=== PATIENT | female | born 1985 | race Caucasian/White ===

== ENCOUNTER → 2023-05-07 08:00 | Outpatient (BNV) | payer OTHER, SELFPAY | PROVIDERS: Visit Provider Psychiatry & Neurology Psychiatry | DX: F31.81 Bipolar II disorder (principal); F10.20 Alcohol dependence, uncomplicated; F43.10 Post-traumatic stress disorder, unspecified; F41.3 Other mixed anxiety disorders; F50.89 Other specified eating disorder; Z86.59 Personal history of other mental and behavioral disorders | CPT/HCPCS: 90792; 99213 ==

== ENCOUNTER 2023-05-08 10:30 | Outpatient (REF) | payer OTHER, SELFPAY ==
[2023-05-08 10:54] LABS: MANUAL DIFF FLAG NO
[2023-05-08 11:07] LABS: Basophils Absolute Auto 0.1 X10*3/uL (0.0-0.2); Basophils Percent Auto 0.9 % (0-2); Eosinophils Percent Auto 0.6 % (0-4); Hematocrit 40.5 % (37.0-47.0); Hemoglobin 13.5 g/dl (12.0-16.0); Imm Gran Abs Auto 0.03 X10*3/uL (0.00-0.03); Imm Gran Pct Auto 0.4 % (0.0-0.4); Lymphocytes Absolute Auto 0.9 X10*3/uL (1.2-4.9); Lymphocytes Percent Auto 13.3 % (20-40); Mean Corpuscular HGB Conc 33.3 g/dl (31.0-35.0); Mean Corpuscular Hemoglobin 31.7 pg (27.0-33.0); Mean Corpuscular Volume 95.1 fL (80.0-98.0); Mean Platelet Volume 9.1 fL (9.4-12.3); Monocytes Absolute Auto 0.6 X10*3/uL (0.1-1.2); Monocytes Percent Auto 7.8 % (2-11); Neutrophils Absolute Auto 5.4 x10*3/uL (2.0-8.3); Platelet Count 374 X10*3/uL (160-400); Red Blood Count 4.26 X10*6/uL (4.20-5.50); Red Cell Distribution Width 13.2 % (11.0-16.0); White Blood Count 7.1 X10*3/uL (4.8-10.8)
[2023-05-08 11:15] LABS: Estimated Average Glucose 91 mg/dL; Hemoglobin A1c % 4.8 % (<6.0)
[2023-05-08 11:51] LABS: Alanine Aminotransferase 54 U/L (0-31); Albumin Level 4.5 g/dL (3.5-5.0); Alkaline Phosphatase 76 U/L (39-117); Anion Gap 12 (12-20); Aspartate Amino Transferase 45 U/L (5-31); Bilirubin Total 0.8 mg/dL (0.0-1.0); Blood Urea Nitrogen 11 mg/dL (9-16); Calcium 9.2 mg/dL (8.4-10.2); Carbon Dioxide 25 mmol/L (22-29); Chloride 102 mmol/L (96-108); Estimated Glomerular Filt Rate > 60; Glucose Fasting 113 mg/dL (60-99); Potassium 3.7 mmol/L (3.3-5.1); Sodium 135 mmol/L (135-145); Total Protein 7.6 g/dL (6.5-8.0)
[2023-05-08 12:10] LABS: Vitamin B12 325 pg/mL (200-900)
[2023-05-08 12:11] LABS: Thyroid Stimulating Hormone 0.36 uIU/mL (0.32-4.0)
[2023-05-08 13:43] LABS: CT PCR NOT DETECTED (Not Detect.); NG PCR NOT DETECTED (Not Detect.)
[2023-05-09 08:17] LABS: HIV AB/AG Nonreactive (Nonreactive); HIV Num 1 0.05 S/CO (0.00-0.99); ~HepC Num1 0.23 S/CO (0.00-0.79); ~Hepatitis C Antibody Nonreactive (Nonreactive)
[2023-05-09 08:19] LABS: Syphilis Screen Nonreactive (Nonreactive)
[2023-05-09 18:09] LABS: Lyme Abs Screen <0.90 index
== END 2023-05-08 10:31 | disposition home or self-care (01) ==
LOC: HO.LAB 10:30
PROVIDERS: Visit Provider Psychiatry & Neurology Psychiatry
DX: Z11.4 Encounter for screening for human immunodeficiency virus [HIV] (principal); F31.81 Bipolar II disorder; F41.3 Other mixed anxiety disorders; F10.20 Alcohol dependence, uncomplicated
CPT/HCPCS: 0353U; 80053; 82607; 83036; 84439; 84443; 85025; 86617; 86618; 86780; 86803; 87389

== ENCOUNTER 2023-05-12 08:00 | Outpatient (RCR) | payer OTHER, SELFPAY ==
[2023-04-28 13:16] VITALS: BMI 23.2
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
--- NOTE | 2023-04-29 12:59 | HO.PHP ---
[facility] staff member followed up with Keaton's mother in regards to Keaton. Keaton's mother shared why Keaton's drug screen came back positive for Benzodiazepines, due to a crisis event unfolding two weeks ago, which led the mother providing her with her prescription of Xanex. Keaton's mother disclosed she gave her 3 .25 mg tablets. Keaton's mother stated she wanted to reassure the team that Keaton does not use Benzodiazepines. [facility] staff member explored if she is still currently giving Keaton that medication. Keaton's mother disclosed that she is not and it was just for that crisis situation. [facility] staff suggested that moving forward that she does not provide Keaton with medication that is not prescribed to her and noted that the provider is working with her actively here to find the appropriate medications for her. Keaton's mother shared how she has been a nurse for 50 years and agreed to not giving her medication that is not prescribed to her. [facility] staff was receptive and thanked Keaton's mother for providing information. Jaspreets mother was receptive.
[2023-04-30 13:23] VITALS: BP 129/80; PULSE 84; TEMP 36.9
[2023-04-30 14:27] LABS: Amphetamine Screen Urine Not Detected (Not Detect); Barbiturates, Urine Not Detected (Not Detect); Benzodiazepines Screen Urine POSITIVE (Not Detect); Cannabinoid Screen Urine POSITIVE (Not Detect); Cocaine Screen Urine Not Detected (Not Detect); Fentanyl, urine Not Detected (Not Detect); Opiate Screen Urine Not Detected (Not Detect); Phencyclidine Screen Urine Not Detected (Not Detect)
--- NOTE | 2023-05-01 16:02 | HO.PHP ---
Client's case has been opened and reviewed in treatment team.
--- NOTE | 2023-05-02 14:35 | HO.PHP ---
PHP staff member returned Keaton's DCF worker's phone call regarding her engaging in service, when her start date was and tentative end date. Keaton's DCF worker was receptive.
--- NOTE | 2023-05-02 23:42 | HO.PHPPROGNO ---
Subjective Subjective Date of Service: 05/02/23 Reason For Visit: anxiety,ADHD,bipolar Interim History: Reports being sober for 2 months, there are cravings but says it's been 1 month a 2 weeks since she last drank and 1 month and 3 weeks since cannabis. She reports the anxiety is through the roof . She reports increasingly irritable and labile mood, no mood regulation,is eager to start on medication. Sleep remains disrupted, inconsistent appetite, no energy. She denies any SI, HI, AH, VH. She has been consistent on current medication regime including fluoxetine and Lamictal. She is agreeable to starting on ABilify for further mood stabilization in order set the stage for initiating modafinil for ADHD symptoms. For now will start Intuniv to help with anxiety in the short term and nursing home improvements in executive functioning. Naltrexone to help with alcohol cravings. (We will consider other options if rx is unavailable) Medication Compliance: Yes Side effects from medications: No Attending Groups: Yes Review of Systems Acute medical concerns: No Mental Status Exam Mental Status Exam Narrative: Alert, oriented, in no acute distress. Mood depressed, irritable. Affect dysphoric, labile. Speech normal. Thought process scattered, but coherent. Thought content related to stressors, executive dysfunction, feeling overwhelmed, some transient helplessness and hopelessness, denies SI, intention or plan. Denies any aggressive ideation. No paranoia or delusional content elicited. No evidence of psychosis. Insight and judgment fair but adequate. Diagnostics Vital Signs (24Hr): BMI result Body Mass Index 23.2 Assessment & Plan Assessment & Plan (1) Bipolar II disorder with rapid cycling: Status: Acute Code(s): F31.81 - Bipolar II disorder (2) Alcohol use disorder, moderate, dependence: Status: Acute Code(s): F10.20 - Alcohol dependence, uncomplicated (3) Complex posttraumatic stress disorder: Status: Acute Code(s): F43.10 - Post-traumatic stress disorder, unspecified (4) Other mixed anxiety disorders: Status: Acute Code(s): F41.3 - Other mixed anxiety disorders (5) Eating disorder, unspecified: Qualifiers: Eating disorder type: other eating disorder Qualified Code(s): F50.89 - Other specified eating disorder Status: Acute Code(s): F50.9 - Eating disorder, unspecified (6) Attention deficit disorder (ADD) in adult: Status: Acute Code(s): F98.8 - Other specified behavioral and emotional disorders with onset usually occurring in childhood and adolescence Plan continue fluoxetine 40 mg qAM start Abilify 2 mg (start 1/2 tablet for 1-2 days, then increase to whole tablet for mood stabilization start guanfacine ER 1 mg to daily at 6pm for anxiety, adhd start naltrexone 50 mg qd for EDB, Etoh cravings continue Lamictal 250 mg/day continue fluoxetine 40 mg qam will order routine lab work continue to monitor Patient educated on: diagnosis, medication risk/benefits and substance abuse Informed Consent: understands Reason for contiued partial hosp. stay Substantial Risk for: inability to function, rapid decompensation and med/psych decompensation Certification I certify that partial hospital treatment is medically necessary due to the symptoms and problems resulting from the patient's mental illness and the failure to treat the patient at the partial hospital level of care would likely result in the patient requiring inpatient psychiatric care which could not be prevented at a less intensive level of care. Total time managing care of this patient today _30___ minutes. Discharge Plan Discharge Attending provider: Kyara Gong Medications: New aripiprazole 2 mg tablet 2 mg PO BEDTIME Qty: 20 0RF guanfacine 1 mg tablet extended release 24 hr 1 - 2 mg PO QPM Qty: 30 0RF naltrexone 50 mg tablet 50 mg PO .QHS Qty: 30 0RF fluoxetine 20 mg capsule 20 mg PO DAILY 30 Days Qty: 30 0RF fluoxetine 10 mg capsule 10 mg PO DAILY 30 Days Qty: 30 0RF modafinil 100 mg tablet 100 mg PO QAM Qty: 20 0RF No Action fluoxetine 40 mg capsule 40 mg PO QAM lamotrigine 150 mg tablet 150 mg PO DAILY lamotrigine 100 mg tablet 100 mg PO DAILY
--- NOTE | 2023-05-05 16:08 | HO.PHP ---
Keaton informed a staff member after group 1 that she has to leave due to her daughter falling ill. Keaton expressed no concerns around safety and will be in the program tomorrow.
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
--- NOTE | 2023-05-12 17:48 | HO.PHPPROGNO ---
Subjective Subjective Date of Service: 05/12/23 Reason For Visit: anxiety,ADHD,bipolar Interim History: Patient seen for follow-up, anticipating discharge at the end of program today. Doing better..I had my period and I'm not been freaking out at everyone like usual. ? Reports no acute issues or concerns. Medication compliant, medications well-tolerated. TRied 2 mg of guanfacine but says it worked no better than 1 mg, so will continue at 1 mg. Denies any adverse effects.? Sleep is much better. Feels naltrexone also contirbutes to good sleep. Mood is stable.? Denies any hopelessness or SI. Denies thoughts of harming self or others at this time. Denies any aggressive ideation or HI. Denies any paranoia or AH or VH. Sleep, appetite, energy stable. Mental Status Exam Mental Status Exam Narrative: Alert, oriented, in no acute distress. Calm, cooperative. Mood stable, affect appropriate. Speech normal. Thought process linear, coherent, more goal-directed. Thought content related to stressors, future-oriented, denies any helplessness, hopelessness or SI.? No aggressive ideation or HI. No paranoia or delusional content elicited. No evidence of psychosis. Insight and judgment fair-good. Diagnostics Vital Signs (24Hr): BMI result Body Mass Index 23.2 Assessment & Plan Assessment & Plan (1) Bipolar II disorder with rapid cycling: Status: Acute Code(s): F31.81 - Bipolar II disorder (2) Alcohol use disorder, moderate, dependence: Status: Acute Code(s): F10.20 - Alcohol dependence, uncomplicated (3) Complex posttraumatic stress disorder: Status: Acute Code(s): F43.10 - Post-traumatic stress disorder, unspecified (4) Other mixed anxiety disorders: Status: Acute Code(s): F41.3 - Other mixed anxiety disorders (5) Eating disorder, unspecified: Qualifiers: Eating disorder type: other eating disorder Qualified Code(s): F50.89 - Other specified eating disorder Status: Acute Code(s): F50.9 - Eating disorder, unspecified (6) History of ADHD: Status: Acute Code(s): Z86.59 - Personal history of other mental and behavioral disorders Plan Anticipate discharge from [facility] tomorrow continue regular medications will defer further medication management to outpatient provider Refills sent to pharmacy Patient educated on: diagnosis, medication risk/benefits and substance abuse Informed Consent: understands Reason for contiued partial hosp. stay Substantial Risk for: stable for discharge Certification I certify that partial hospital treatment is medically necessary due to the symptoms and problems resulting from the patient's mental illness and the failure to treat the patient at the partial hospital level of care would likely result in the patient requiring inpatient psychiatric care which could not be prevented at a less intensive level of care. Total time managing care of this patient today __30__ minutes. Discharge Plan Discharge Attending provider: Kyara Gong Medications: New aripiprazole 2 mg tablet 2 mg PO BEDTIME Qty: 20 0RF naltrexone 50 mg tablet 50 mg PO .QHS Qty: 30 0RF fluoxetine 20 mg capsule 20 mg PO DAILY 30 Days Qty: 30 0RF fluoxetine 10 mg capsule 10 mg PO DAILY 30 Days Qty: 30 0RF Continued lamotrigine 150 mg tablet 150 mg PO DAILY lamotrigine 100 mg tablet 100 mg PO DAILY Changed modafinil 100 mg tablet 100 - 200 mg PO QAM Qty: 20 0RF guanfacine 1 mg tablet extended release 24 hr See Rx Instructions .ROUTE .COMPLEX Qty: 30 0RF Rx Instructions: take 1 tablet po BID as directed Discontinued fluoxetine 40 mg capsule 40 mg PO QAM Stand Alone Forms: Patient Portal Discharge page Patient Education: Bipolar Disorder (DC) Print Language: Arabic
== END 2023-05-12 23:59 | disposition home or self-care (01) ==
LOC: HO.PHPA 08:00
PROVIDERS: Visit Provider Psychiatry & Neurology Psychiatry
DX: F31.81 Bipolar II disorder (principal); F43.10 Post-traumatic stress disorder, unspecified; F41.3 Other mixed anxiety disorders; F98.8 Other specified behavioral and emotional disorders with onset usually occurring in childhood and adolescence; F50.89 Other specified eating disorder; F10.20 Alcohol dependence, uncomplicated; F12.10 Cannabis abuse, uncomplicated; Z86.59 Personal history of other mental and behavioral disorders; Z79.899 Other long term (current) drug therapy
CPT/HCPCS: 80307; 90791; 90853

== ENCOUNTER 2024-01-30 09:39 | Outpatient (REF) | payer OTHER, SELFPAY ==
[2024-01-30 10:02] LABS: MANUAL DIFF FLAG NO
[2024-01-30 10:24] LABS: Basophils Percent Auto 0.6 % (0-2); Eosinophils Absolute Auto 0.1 X10*3/uL (0.0-0.4); Eosinophils Percent Auto 2.5 % (0-4); Hematocrit 41.5 % (37.0-47.0); Hemoglobin 13.7 g/dl (12.0-16.0); Imm Gran Abs Auto 0.01 X10*3/uL (0.00-0.03); Imm Gran Pct Auto 0.2 % (0.0-0.4); Lymphocytes Absolute Auto 1.8 X10*3/uL (1.2-4.9); Lymphocytes Percent Auto 36.7 % (20-40); Mean Corpuscular Hemoglobin 30.2 pg (27.0-33.0); Mean Corpuscular Volume 91.6 fL (80.0-98.0); Mean Platelet Volume 9.7 fL (9.4-12.3); Monocytes Absolute Auto 0.3 X10*3/uL (0.1-1.2); Monocytes Percent Auto 6.8 % (2-11); Neutrophils Absolute Auto 2.6 x10*3/uL (2.0-8.3); Neutrophils Percent Auto 53.2 % (45-73); Platelet Count 378 X10*3/uL (160-400); Red Blood Count 4.53 X10*6/uL (4.20-5.50); Red Cell Distribution Width 12.7 % (11.0-16.0); White Blood Count 4.8 X10*3/uL (4.8-10.8)
[2024-01-30 10:38] LABS: Estimated Average Glucose 103 mg/dL; Hemoglobin A1c % 5.2 % (<6.0); Total Hemoglobin (HGBA1C) 3513.8896 umol/L
[2024-01-30 11:05] LABS: Erythrocyte Sedimentation Rate 6 MM/HR (0-20)
[2024-01-30 11:17] LABS: Alanine Aminotransferase 16 U/L (0-31); Albumin Level 4.1 g/dL (3.5-5.0); Alkaline Phosphatase 54 U/L (39-117); Anion Gap 12 (12-20); Aspartate Amino Transferase 22 U/L (5-31); Bilirubin Total 0.3 mg/dL (0.0-1.0); Blood Urea Nitrogen 9 mg/dL (9-16); C Reactive Protein 0.13 mg/dL (< or = 0.50); Carbon Dioxide 28 mmol/L (22-29); Chloride 106 mmol/L (96-108); Cholesterol 173 mg/dL (<200); Estimated Glomerular Filt Rate > 60; Glucose Fasting 97 mg/dL (60-99); HDL Cholesterol 55 mg/dL (>40); Iron 51 mcg/dL (30-160); LDL Cholesterol Calculated 107 mg/dL (<100); Magnesium 2.1 mg/dL (1.6-2.6); Percent Iron Saturation 19 % (15-50); Potassium 4.1 mmol/L (3.3-5.1); Sodium 142 mmol/L (135-145); Total Iron Binding Capacity 264 mcg/dL (228-428); Triglycerides 58 mg/dL (<150); Unsaturated Iron Binding 213 ug/dL
[2024-01-30 11:32] LABS: Ferritin 13 ng/mL (10-250); Thyroid Stimulating Hormone 0.42 uIU/mL (0.32-4.0); Vitamin D 25-OH Total 20.1 ng/mL (>30)
[2024-01-30 11:35] LABS: Gamma Glutamyl Transpeptidase 12 U/L (7-33)
[2024-01-30 11:36] LABS: Folate 10.1 ng/mL (> or = 4.0); Vitamin B12 615 pg/mL (200-900)
[2024-02-02 17:03] LABS: Homocysteine 8.2 umol/L (<10.4)
[2024-02-03 15:39] LABS: Vitamin B1 8 nmol/L (8-30)
== END 2024-01-30 09:40 | disposition home or self-care (01) ==
LOC: HO.LAB 09:39
PROVIDERS: PCP Internal Medicine; Visit Provider Psychiatry & Neurology Psychiatry
DX: F39 Unspecified mood [affective] disorder (principal); F43.10 Post-traumatic stress disorder, unspecified; F40.9 Phobic anxiety disorder, unspecified
CPT/HCPCS: 36415; 80053; 80061; 82306; 82607; 82728; 82746; 82977; 83036; 83090; 83540; 83735; 84425; 84439; 84443; 85025; 85652; 86140

== ENCOUNTER → 2024-02-05 09:08 | Outpatient (REF) | payer OTHER, SELFPAY ==
--- NOTE | 2024-02-05 | ECG_ITS ---
Test Reason : qtc prolongnation Blood Pressure : / mmHG Vent. Rate : 079 BPM Atrial Rate : 079 BPM P-R Int : 136 ms QRS Dur : 076 ms QT Int : 384 ms P-R-T Axes : 065 -02 045 degrees QTc Int : 440 ms Normal sinus rhythm Normal ECG No previous ECGs available Referred By: Kyara Gong Electronically Signed By:Anthony Brice
== END ==
LOC: HO.CARD 09:08
PROVIDERS: PCP Internal Medicine; Visit Provider Psychiatry & Neurology Psychiatry
DX: F39 Unspecified mood [affective] disorder (principal); F43.10 Post-traumatic stress disorder, unspecified; F90.9 Attention-deficit hyperactivity disorder, unspecified type
CPT/HCPCS: 93005

== ENCOUNTER → 2024-02-05 09:14 | Outpatient (BNV) | payer OTHER, SELFPAY | PROVIDERS: PCP Internal Medicine; Visit Provider Internal Medicine Cardiovascular Disease | DX: I45.81 Long QT syndrome (principal) | CPT/HCPCS: 93010 ==

== ENCOUNTER 2024-02-05 09:30 | Outpatient (RCR) | payer OTHER, SELFPAY ==
[2024-01-21 11:53] VITALS: BMI 24.0
[2024-01-21 11:54] VITALS: BP 120/70; PULSE 68; TEMP 36.9
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
--- NOTE | 2024-01-22 14:52 | HO.PHP ---
Client's case has been opened and reviewed in team.
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
--- NOTE | 2024-01-26 09:55 | HO.PHP ---
PHP admin, Elsa, informed the team that Keaton will not be in attendance to the program today due to having a court hearing. Keaton will be in attendance to program tomorrow.
--- NOTE | 2024-01-26 14:23 | HO.PHP ---
A referral was placed to [facility] for OP therapy via email. We are awaiting an appointment date and time.
--- NOTE | 2024-04-20 20:03 | HO.PHPPROGNO ---
Subjective Subjective Date of Service: 02/05/24 Reason For Visit: anxiety,ADHD Interim History: Patient seen for follow-up, anticipating discharge at the end of program today.? Mood has been improving, currently up to a 5-6 out of 10. Abilify has also been helpful with anxiety. ALso sleeping better. Medication compliant, medications well-tolerated. Denies any adverse effects.?Denies any acute issues or concerns. Mood is stable.? Denies any hopelessness or SI. Denies thoughts of harming self or others at this time. Denies any aggressive ideation or HI. Denies any paranoia or AH or VH. Sleep, appetite, energy stable. Medication Compliance: Yes Side effects from medications: No Attending Groups: Yes Review of Systems Acute medical concerns: No Mental Status Exam Mental Status Exam Narrative: Alert, oriented, in no acute distress. Calm, cooperative. Mood stable, affect appropriate. Speech normal. Thought process linear, coherent, more goal-directed. Thought content related to stressors, future-oriented, denies any helplessness, hopelessness or SI.? No aggressive ideation or HI. No paranoia or delusional content elicited. No evidence of psychosis. Insight and judgment fair-good. Diagnostics Vital Signs (24Hr): BMI result Body Mass Index 24.0 Assessment & Plan Assessment & Plan (1) Bipolar II disorder with rapid cycling: Status: Acute Code(s): F31.81 - Bipolar II disorder (2) Alcohol use disorder, moderate, dependence: Status: Acute Code(s): F10.20 - Alcohol dependence, uncomplicated (3) Complex posttraumatic stress disorder: Status: Acute Code(s): F43.10 - Post-traumatic stress disorder, unspecified (4) Other mixed anxiety disorders: Status: Acute Code(s): F41.3 - Other mixed anxiety disorders (5) Eating disorder, unspecified: Qualifiers: Eating disorder type: other eating disorder Qualified Code(s): F50.89 - Other specified eating disorder Status: Acute Code(s): F50.9 - Eating disorder, unspecified (6) History of ADHD: Status: Acute Code(s): Z86.59 - Personal history of other mental and behavioral disorders Plan [facility]charge from [facility] Continue regular medications Abilify 5 mg qhs gaunafacine er 2 mg qam fluoxetine 20 mg qam Lamictal 150 mg qd will trial Vyvanse 10 mg qd hold/discont Adderall XR 20 mg if Vyvanse better tolerated disulfarim 250 mg qd naltrexone 50 mg qd Refills sent to pharmacy Will defer further medication management to outpatient provider *Safety plan reviewed *Discharge diagnoses, treatment course, discharge plan have been reviewed with patient (including medication regime, medication management, potential side effects) as well as treatment rationale were also revisited *Discharge paperwork signed and given to patient, copy sent for scanning to chart Patient educated on: diagnosis, medication risk/benefits and substance abuse Informed Consent: understands Reason for contiued partial hosp. stay Substantial Risk for: stable for discharge Certification I certify that partial hospital treatment is medically necessary due to the symptoms and problems resulting from the patient's mental illness and the failure to treat the patient at the partial hospital level of care would likely result in the patient requiring inpatient psychiatric care which could not be prevented at a less intensive level of care. Total time managing care of this patient today __30__ minutes. Discharge Plan Discharge Attending provider: Kyara Gong Medications: New guanfacine 2 mg tablet extended release 24 hr 2 mg PO DAILY Qty: 30 0RF thiamine HCl (vitamin B1) 100 mg tablet 100 mg PO DAILY Qty: 30 2RF aripiprazole 2 mg tablet 2 mg PO DAILY Qty: 20 0RF disulfiram 250 mg tablet 250 mg PO DAILY Qty: 14 0RF cholecalciferol (vitamin D3) [Vitamin D3] 125 mcg (5,000 unit) tablet 125 mcg PO DAILY Qty: 30 2RF lisdexamfetamine 10 mg capsule 10 mg PO QAM Qty: 30 0RF Rx Instructions: Partial Fill upon patient request. Continued lamotrigine 150 mg tablet 150 mg PO DAILY Rx Instructions: Last Filled 12/12/23 naltrexone 50 mg tablet 50 mg PO .QHS Qty: 30 0RF Rx Instructions: Last Filled 12/16/23 fluoxetine 20 mg capsule 20 mg PO DAILY 30 Days Qty: 30 0RF Rx Instructions: Last Filled 12/16/23 dextroamphetamine-amphetamine [Adderall XR] 20 mg Capsule,Extended Release 24hr 20 mg PO DAILY Rx Instructions: Last Filled 12/26/23 aripiprazole [Abilify] 5 mg Tablet 5 mg PO BEDTIME Rx Instructions: Patient stated she takes at bedtime. Last Filled 12/16/23 Discontinued guanfacine 1 mg tablet extended release 24 hr 1 mg PO BID PRN (Reason: Anxiety) Rx Instructions: Patient states she takes as needed for anxiety. Last Filled 12/16/23 Patient Education: ADHD in Adults (DC), Bipolar Disorder (DC), Alcohol Use Disorder (DC) Print Language: Slovenian
== END 2024-02-05 23:59 | disposition home or self-care (01) ==
LOC: HO.PHPA 09:30
PROVIDERS: Visit Provider Psychiatry & Neurology Psychiatry
DX: F31.81 Bipolar II disorder (principal); F10.20 Alcohol dependence, uncomplicated; F43.10 Post-traumatic stress disorder, unspecified; F41.3 Other mixed anxiety disorders; F50.89 Other specified eating disorder; Z86.59 Personal history of other mental and behavioral disorders; Z79.899 Other long term (current) drug therapy
CPT/HCPCS: 90791; 90853

== ENCOUNTER → 2024-02-05 09:30 | Outpatient (BNV) | payer OTHER, SELFPAY | PROVIDERS: Visit Provider Psychiatry & Neurology Psychiatry | DX: F31.81 Bipolar II disorder (principal); F10.20 Alcohol dependence, uncomplicated; F43.10 Post-traumatic stress disorder, unspecified; F41.3 Other mixed anxiety disorders; F50.89 Other specified eating disorder; Z86.59 Personal history of other mental and behavioral disorders | CPT/HCPCS: 99213 ==